=== PATIENT | male | born 1985 | race Caucasian/White ===

== ENCOUNTER 2023-02-18 10:06 | Emergency (ER) | payer MEDICAID, OTHER ==
[~2023-02-18] VITALS: Ht 182.9 cm; Wt 96.4 kg
[~2023-02-18 10:06] MED LIST: CLEO300C2 PO
[2023-02-18] MEDS ORDERED: ACETAMINOPHEN 500 MG TAB PO ONE (11:45)
[2023-02-18] MEDS ORDERED: KETOROLAC 60MG 2ML VIAL IM ONE (13:40)
[2023-02-18 13:58] VITALS: BP 136/78; TEMP 97.9; O2SAT 97
== END 2023-02-18 14:35 | disposition home or self-care (01) ==
LOC: M ED 10:06 → EDBD 10:06 → M ED 14:35
DX: S62.307A Unspecified fracture of fifth metacarpal bone, left hand, initial encounter for closed fracture (principal); S46.012A Strain of muscle(s) and tendon(s) of the rotator cuff of left shoulder, initial encounter; W19.XXXA Unspecified fall, initial encounter; Y92.9 Unspecified place or not applicable; Y99.9 Unspecified external cause status; Z88.8 Allergy status to other drugs, medicaments and biological substances; Z79.2 Long term (current) use of antibiotics